=== PATIENT | female | born 1990 | race Caucasian/White ===

== ENCOUNTER 2019-08-07 18:57 | Emergency (ER) | payer OTHER, SELFPAY ==
[2019-08-07 19:08] VITALS: BP 137/83; PULSE 81; RESP 22; TEMP 36.4; O2SAT 100
--- NOTE | 2019-08-07 19:48 | DI.US.S_ITS ---
ULTRASOUND OF RIGHT BREAST: 08/07/2019 CLINICAL: Palpable right breast lumps with redness, pain. Possible abscess. Comparison is made to exam dated: 05/30/2019 ultrasound - [facility]. Color flow and real-time ultrasound of the right breast were performed. Jarrett scale images of the real-time examination were reviewed. At the 1:30 o'clock position, 9 cm from the nipple, one irregular mass measures 3.2 cm x 3.9 cm x 2.2 cm. There is posterior acoustic enhancement. There is peripheral vascularity. No internal vascularity visualized. There is apparent internal debris. There is also overlying skin erythema. At the 1:00 position, 9 cm from the nipple, the second irregular hypoechoic mass measures 1.1 x 0.9 x 0.9 cm. There is associated posterior acoustic enhancement. Immediately adjacent to this at the 1:00 position, 9 cm from the nipple, a third irregular hypoechoic mass is identified measuring 1.8 x 1.7 x 1.3 cm. At the 10:00 position, 7 cm from nipple, there is a fourth irregular hypoechoic mass measuring 7.4 x 3.2 x 3.3 cm. There is also posterior acoustic enhancement and peripheral vascularity. No central vascularity noted. At the 9:00 axis, 4 cm from the nipple, there is a fifth irregular hypoechoic mass measuring 2.3 x 1.7 x 4.8 cm. There is also posterior acoustic enhancement and peripheral vascularity. At the 5:30 o'clock position, 5 cm from the nipple, there is a sixth irregular hypoechoic mass measuring 2.6 x 2.0 x 3.4 cm. There is posterior acoustic enhancement. There is peripheral vascularity. IMPRESSION: PROBABLY BENIGN Multiple scattered irregular heterogeneously hypoechoic masses in the right breast correlating with areas of patient's pain with mild skin erythema involving the upper inner quadrant of the right breast. Findings are suggestive of phlegmon formation versus early developing abscess with other considerations to include galactocele or less likely neoplastic process. No sonographic evidence to suggest drainable fluid collections at this time. Overall, these are probably benign findings. Recommend short interval followup ultrasound in 1 month after course of antibiotic to document stability versus resolution. If findings do not resolve or demonstrate significant decrease in size, recommend aspiration with possible biopsy at that time. Findings were discussed with Dr. Lanker of the Emergency department at 2300 hrs. This exam was interpreted at Station ID: [id number]. Electronically Signed By: Bj Weller M.D. aty/:08/07/2019 23:26:13 letter sent: Followup Recommended Ultrasound BI-RADS: 3 Probably benign
--- NOTE | 2019-08-07 19:48 | ED_ITS ---
HPI - Skin/Abscess/Foreign Bdy General Chief complaint: Skin/Abscess/Foreign Body Stated complaint: MASTITIS OF BREAST Time Seen by Provider: 08/07/19 19:23 Source: patient Mode of arrival: Ambulatory Limitations: no limitations History of Present Illness HPI narrative: 28-year-old female. Approximately 4 weeks here for evaluation of concern for mastitis in her right breast. She is . She states that she feels like that her milk is in. she feels like she is not draining the right breast completely. She is pumping after she breast feeds. She does feel like her child is latching well. She denies any fevers. Has some redness around the right breast. Not currently on any antibiotics. No symptoms in the left breast. Related Data Previous Rx's Medication Instructions Recorded dicloxacillin 500 mg PO QID 10 Days #40 cap 08/07/19 Review of Systems Constitutional Constitutional: Denies fever(s) Cardiovascular Cardiovascular: Denies chest pain and Denies dyspnea Respiratory Respiratory: Denies dyspnea Gastrointestinal Gastrointestinal: Denies vomiting Genitourinary Genitourinary: Denies nipple discharge Integumentary/Breasts Skin/Breast: Reports breast swelling, Reports breast skin changes, Reports breast pain and Denies nipple discharge Hematologic/Lymphatic Hematologic/Lymphatic: Denies easy bleeding and Denies easy bruising Allergic/Immunologic Allergic/Immunologic: Denies urticaria Patient History Medical History (Updated 08/08/19 @ 02:53 by Woody Luo DO) Healthy adult (Acute) Social History marital status: lives independently: Yes Exam Initial Vital Signs Initial Vital Signs: Vital Signs Temperature 97.6 F 08/07/19 19:08 Pulse Rate 81 08/07/19 19:08 Respiratory Rate 22 08/07/19 19:08 Blood Pressure 137/83 08/07/19 19:08 Pulse Oximetry 100 08/07/19 19:08 Const General: cooperative and comfortable Limitations: mental status not altered HENTN Head: normal to inspection and normocephalic Chest Breast Palpation: abnormal palpation of the breast Skin Other: Patient with very slight redness to palpation approximately 2 o'clock position of the right breast. Does have underlying fullness in this area. Also has some slight redness on the lateral aspect of the right breast at approximately 0900 hours position. Again has fullness under this area. Extrem General: normal to inspection and capillary refill normal Psych Appearance: grossly normal and well kempt Course Orders Ordered: ED Orders 08/07/19 19:48 US breast RT limited Stat Discontinued Medications Cephalexin HCl (Keflex) 500 mg PO NOW ONE Stop: 08/07/19 22:03 Last Admin: 08/07/19 22:18 Dose: 500 mg Documented by: REINA Dicloxacillin Sodium (Dicloxacillin) 500 mg PO Q6HR [facility] Vital Signs Vital signs: Vital Signs - 8 hr 08/07/19 19:08 08/07/19 21:50 Temperature 97.6 F Pulse Rate 81 74 Respiratory Rate 22 16 Blood Pressure 137/83 129/80 Pulse Oximetry 100 100 MDM - Skin/Abscess/Foreign Bdy MDM Narrative Medical decision making narrative: Nursing staff was in room as a standby for the breast exam. Does have some redness around this area and tenderness to palpation. No bleeding from the nipple. Patient was afebrile. Not tachycardic. Bedside ultrasound does show some concerns about an abscess in these areas of fullness. A formal ultrasound was ordered. I did discuss the case with the radiologist who states that these could potentially be abscesses versus milk ducts verses cyst versus other etiology. Final report not available secondary to having and reviewed by another radiologist. Patient's clinical exam was concern for mastitis. She is well-appearing. Had a discussion with her regarding the findings of the ultrasound. Stated that these could be any number of etiologies but for her current situation the most concerning would be an abscess. Concern with her is that these findings could be normal cysts given her skin presentation and her vital signs. Patient does states she has been diagnosed with cysts in the past. After this discussion the plan will be is to give the patient oral antibiotics with strict return precautions. Radiologist states that he will put this patient's name in their system to contact her about a follow-up given the findings on the ultrasound especially after she has been given a course of antibiotics. Did inform the patient that she develops fevers or worsening pain or worsening redness she should return to the emergency department is not be more concerning about a abscess. Initially ordered dicloxacillin however this was unavailable to this patient because it was after hours even though it is available during the day so the patient was given a dose of Keflex. Will send home with prescription for dicloxacillin. Patient ex pressed understanding and agreement Discharge Plan Departure Patient Disposition: Home Clinical Impression: Mastitis Discharge Date/Time: 08/07/19 22:28 Instructions: DI for Mastitis Activity Restrictions/Additional Instructions: Take the antibiotics as directed. You can continue to breast feed and/or pump like normal. Contact your primary provider for follow-up. If your symptoms worsen to include fevers or worsening redness or worsening pain please return to the emergency department. Prescriptions: New dicloxacillin 500 mg capsule 500 mg PO QID 10 Days Qty: 40 RF: 0
--- NOTE | 2019-08-07 19:49 | PC.NURSE ---
standby for dr. katz/ right breast.
[2019-08-07 21:50] VITALS: BP 129/80; PULSE 74; RESP 16; O2SAT 100
[2019-08-07] MEDS: cephALEXin 250 MG CAPSULE 500 MG PO (22:18)
== END 2019-08-07 22:28 | disposition home or self-care (01) ==
PROVIDERS: Emergency Provider Emergency Medicine
DX: N61.0 Mastitis without abscess (principal)
CPT/HCPCS: 76642; 99283

== ENCOUNTER 2019-11-05 21:18 | Emergency (ER) | payer OTHER, SELFPAY ==
[2019-11-05 21:38] VITALS: BP 111/76; PULSE 72; RESP 20; TEMP 37.1; O2SAT 99; BMI 22.6
--- NOTE | 2019-11-05 21:47 | DI.RAD.S_ITS ---
PROCEDURE: XR FINGER LT MIN 2V INDICATIONS: dog bite, puncture wounds TECHNIQUE: AP hand, 2 views of the 3rd finger(s) acquired. COMPARISON: None. FINDINGS: Bones: No fractures or dislocations. No suspicious bony lesions. Soft tissues: No suspicious soft tissue calcifications. No radiopaque foreign body. IMPRESSION: No acute osseous abnormality. Dictated by: Dennis Glass M.D. on 11/05/2019 at 22:48 Approved by: Dennis Glass M.D. on 11/05/2019 at 22:48
--- NOTE | 2019-11-05 23:43 | ED_ITS ---
HPI - Animal Bite General Chief Complaint: Animal Bite Stated Complaint: Dog Bite on Left Hand Time Seen by Provider: 11/05/19 23:39 Source: patient Mode of arrival: Ambulatory Limitations: no limitations History of Present Illness HPI narrative: Patient bitten by her pet dog. Dog is up-to-date with vaccinations. Unprovoked. Patient has tooth dharmesh/bite dharmesh on the 3rd left digit only. No other injuries. Injury to the skin at the dorsal surface of the PIP joint as well as on the volar surface of the PIP joint and PIP joint. No numbness tingling weakness. Patient denies does not want t est Related Data Previous Rx's Medication Instructions Recorded amoxicillin-pot clavulanate 1 tab PO BID #14 tab 11/05/19 [Augmentin] Allergies Allergy/AdvReac Type Severity Reaction Status Date / Time No Known Drug Allergies Allergy Verified 11/05/19 21:43 Review of Systems Review of Systems Narrative: GENERAL: Denies chills, fatigue, malaise, fever, sweats. HEENT: Denies sinus pain, ear pain, sore throat, difficulty swallowing, dizziness. RESPIRATORY: Denies dyspnea, cough, wheezing, hemoptysis, sputum. CARDIOVASCULAR: Denies chest pain, palpitations, orthopnea, edema, GASTROINTESTINAL: Denies nausea, vomiting, abdominal pain, diarrhea, constipation, melena. : Denies dysuria, frequency, incontinence, hematuria, urinary retention. MUSCULOSKELETAL: denies weakness, complains of joint pain, or bony pain SKIN: Denies rash, skin lesions, NEUROLOGIC: Denies weakness, headache, numbness, change in speech, confusion, seizures, incoordination. PSYCHIATRIC: No concerning psychosocial issues. ROS Unobtainable: All systems reviewed & are unremarkable except as noted in HPI and below Patient History Medical History Healthy adult (Acute) Social History marital status: lives independently: Yes Smoking Status: Never smoker Smoking Status: Never smoker alcohol intake frequency: 0-2 drinks per day Substance Use Type: does not use Exam Narrative Exam Narrative: GENERAL: patient appears stated age. Well-nourished, well- developed patient, in no distress, not toxic EXTREMITIES: Examination left hand. There are puncture wounds at the dorsal surface of the DIP joint as well as the volar surface of the dIP joint and the PIP joint, full active range of motion at the MCP PIP and D IP joints isolated each. Light touch front end assistant finger tip. No tendon or bony injury seen in bloodless field. No red streaking. NEURO: AOx3. SKIN: No rash or erythema of visible areas PSYCH: Not anxious, is cooperative Initial Vital Signs Initial Vital Signs: Vital Signs Temperature 98.7 F 11/05/19 21:38 Pulse Rate 72 11/05/19 21:38 Respiratory Rate 20 11/05/19 21:38 Blood Pressure 111/76 11/05/19 21:38 Pulse Oximetry 99 11/05/19 21:38 Course Orders Ordered: ED Orders 11/05/19 21:47 XR finger LT min 2V Stat Discontinued Medications Amoxicillin/Clavulanate Potassium (Augmentin 875-125 Mg) 1 tab PO NOW ONE Stop: 11/05/19 23:44 Last Admin: 11/05/19 23:54 Dose: 1 tab Documented by: GERMAIN Bacitracin (Bacitracin) 1 applic TOP NOW ONE Stop: 11/05/19 23:49 Last Admin: 11/05/19 23:54 Dose: 1 applic Documented by: GERMAIN Diphtheria/Tetanus/Acell Pertussis (Adacel) 0.5 ml IM .ONCE ONE Stop: 11/05/19 23:44 Last Admin: 11/05/19 23:55 Dose: Not Given Documented by: GERMAIN Reevaluation(s) Reevaluation #1: Patient understands no suturing indicated this time. Time: 23:46 Vital Signs Vital signs: Vital Signs - 8 hr 11/05/19 21:38 11/06/19 00:17 Temperature 98.7 F 98.5 F Pulse Rate 72 84 Respiratory Rate 20 16 Blood Pressure 111/76 121/84 Pulse Oximetry 99 98 MDM - Animal Bite Differential Diagnosis Differential diagnosis: Likely dog bite Imaging Data Left finger x-ray: Radiologist's Impression: [address] [address] XRay Report Signed Patient: Rupinder Jerez MMR#: [id number] : 1990Acct:[id number] Age/Sex: 29 / FDate of Service: 11/05/19 Loc: ED Accession Number: [id number] Procedure: XR finger LT min 2V Ordering Provider: Jay Muñoz MD PROCEDURE: XR FINGER LT MIN 2V INDICATIONS: dog bite, puncture wounds TECHNIQUE: AP hand, 2 views of the 3rd finger(s) acquired. COMPARISON: None. FINDINGS: Bones: No fractures or dislocations. No suspicious bony lesions. Soft tissues: No suspicious soft tissue calcifications. No radiopaque foreign body. IMPRESSION: No acute osseous abnormality. Dictated by: Dennis Glass M.D. on 11/05/2019 at 22:48 Approved by: Dennis Glass M.D. on 11/05/2019 at 22:48 [facility] Narrative Medical decision making narrative: Patient agrees and understands no suturing this time. No labs indicated. Appropriate for discharge home. Not toxic. Discharge Plan Departure Patient Disposition: Home Clinical Impression: Dog bite Qualifiers: Encounter type: initial encounter Qualified Code(s): W54.0XXA - Bitten by dog, initial encounter Discharge Date/Time: 11/06/19 00:18 Instructions: DI for Dog Bite Activity Restrictions/Additional Instructions: Clean finger twice a day with warm soap and water and then apply topical antibiotic. Call provided phone number for attaining family physician to see within a week. Return if worse or if any concerns or questions. Prescriptions: New amoxicillin-pot clavulanate [Augmentin] 875-125 mg tablet 1 tab PO BID Qty: 14 RF: 0 Referrals: [facility] [Outside]
[2019-11-05] MEDS: BACITRACIN OINT 0.9 GM PCKT 1 APPLIC TOP (23:54)
[2019-11-05] MEDS: AMOXICILLIN/CLAV 875/125 MG 1 TAB PO (23:54)
[2019-11-05] MEDS: TET,DIPH,PERTUSS(ACELL),VAC/PF 0.5 ML SYRINGE IM (23:55)
[2019-11-06 00:17] VITALS: BP 121/84; PULSE 84; RESP 16; TEMP 36.9; O2SAT 98
== END 2019-11-06 00:18 | disposition home or self-care (01) ==
PROVIDERS: Emergency Provider Emergency Medicine
DX: S61.253A Open bite of left middle finger without damage to nail, initial encounter (principal); W54.0XXA Bitten by dog, initial encounter
CPT/HCPCS: 73140; 99283; 99284; 90715

== ENCOUNTER → 2019-12-24 12:38 | Outpatient (CLI) | payer OTHER, SELFPAY ==
--- NOTE | 2019-12-24 12:39 | DI.MRI.S_ITS ---
PROCEDURE: MR KNEE RT WO CON INDICATIONS: Knee pain TECHNIQUE: Noncontrast sagittal PD fast spin echo and T2 fast spin echo with fat saturation, sagittal 3-D FLASH with fat saturation; coronal T1 spin echo and PD fast spin echo with fat saturation, and axial PD fast spin echo with fat saturation through the knee. COMPARISON: None. FINDINGS: Image quality: Excellent. Menisci: Medial meniscus intact. Lateral meniscus intact. Cruciate ligaments: Anterior cruciate ligament appears intact. Posterior cruciate ligament appears intact. Medial structures: The medial collateral ligament appears intact. Semimembranosus tendon appears intact. Visualized portions of the pes anserinus tendons appear normal. No abnormal bursal fluid. Lateral structures: The lateral collateral ligament intact. Biceps femoris tendon appears intact. Popliteus tendon grossly unremarkable. Iliotibial band appears intact. Anterior structures: There is patella juice. Quadriceps tendon intact. Medial and lateral patellofemoral ligaments intact. Patellar tendon appears intact. Edema and fluid is present in the superolateral aspect of Hoffa's fat pad Bones and cartilage: No focal marrow contusion or discrete low signal fracture line. Within the medial compartment, no focal cartilage defect. Within the lateral compartment, no focal cartilage defect. Within the patellofemoral compartment, diffuse partial-thickness loss of the patellar cartilage, and surface fraying. No definite femoral trochlear cartilage defect is seen. There is Joint space: No joint effusion. Martin's cyst measuring 6 cm in the cephalocaudal dimension. No specific evidence of intra-articular loose body. IMPRESSION: Patellofemoral chondromalacia. Focal fluid and soft tissue edema involving the superolateral aspect of Hoffa's fat pad. This finding can be seen the setting of patellofemoral tracking abnormalities. Patella juice. Martin's cyst Dictated by: Ottoniel Morocho M.D. on 12/24/2019 at 15:04 Approved by: Ottoniel Morocho M.D. on 12/24/2019 at 15:11
--- NOTE | 2019-12-24 12:39 | DI.MRI.S_ITS ---
PROCEDURE: MR LUMBAR SPINE WO CON INDICATIONS: Low back pain TECHNIQUE: Noncontrast sagittal T1 spin echo and T2 fast echo, sagittal STIR, axial T1 and T2 fast spin echo through the lumbar spine. In cases with scoliosis, additional coronal T2 fast spin echo may be performed. COMPARISON: None. FINDINGS: Image quality: Excellent. Alignment and Curvature: There is normal bony alignment. Bone Marrow: Marrow is of normal overall signal. No acute vertebral body compression fractures. Spinal Cord: Conus medullaris terminates at the L1-2 disc level. Visualized cord demonstrates normal signal and size. Paraspinous Soft Tissues: No paravertebral masses. L1-L2: Normal appearance. L2-L3: Normal appearance. L3-L4: Loss of disc signal. Mild, diffuse disc bulge. No central stenosis. No neural foraminal narrowing. No neural compression. L4-L5: Disc has a normal appearance. Mild bilateral facet hypertrophy. No central stenosis. No neural foraminal narrowing. No neural compression. L5-S1: Disc has a normal appearance. Mild right and moderate left facet hypertrophy. No central stenosis. No neural foraminal narrowing. No neural compression. Small bilateral L2-L3 Tarlov cysts. IMPRESSION: 1. Mild L3-L4 degenerative disc disease. 2. Mild bilateral L4-L5 facet arthropathy. Mild right and moderate left L5-S1 facet arthropathy. 3. No central stenosis. 4. No neural foraminal narrowing. 5. No neural compression. Dictated by: Sheeba Hernandez MD, PhD on 12/24/2019 at 17:03 Approved by: Sheeba Hernandez MD, PhD on 12/24/2019 at 17:10
== END ==
PROVIDERS: PCP Student in an Organized Health Care Education/Training Program; Referring Provider Student in an Organized Health Care Education/Training Program; Visit Provider Student in an Organized Health Care Education/Training Program
DX: M24.9 Joint derangement, unspecified (principal); M25.561 Pain in right knee; M22.41 Chondromalacia patellae, right knee; M71.21 Synovial cyst of popliteal space [Baker], right knee; M22.8X1 Other disorders of patella, right knee; M79.2 Neuralgia and neuritis, unspecified; M54.5 Low back pain; M51.36 Other intervertebral disc degeneration, lumbar region; M47.816 Spondylosis without myelopathy or radiculopathy, lumbar region; M47.817 Spondylosis without myelopathy or radiculopathy, lumbosacral region; M62.830 Muscle spasm of back
CPT/HCPCS: 72148; 73721

== ENCOUNTER → 2021-03-09 09:58 | Outpatient (CLI) | payer OTHER, SELFPAY ==
[2021-03-09 11:24] LABS: Add Manual Diff / Slide Review NO; Basophils Absolute Auto 0 /uL (0-100); Basophils Percent Auto 0.6 % (0-2); Eosinophils Absolute Auto 100 /uL (0-450); Eosinophils Percent Auto 1.3 % (2-4); Hematocrit 35.8 % (36-46); Hemoglobin 12.2 g/dL (12.0-16.0); Lymphocytes Absolute Auto 1500 /uL (1100-4500); Lymphocytes Percent Auto 34.3 % (25-40); Mean Corpuscular HGB Conc 34.2 % (30-36); Mean Corpuscular Hemoglobin 30.7 PG (26-34); Mean Corpuscular Volume 89.9 fL (80-100); Monocytes Absolute Auto 200 /uL (0-900); Monocytes Percent Auto 5.5 % (3-14); Neutrophils Absolute Auto 2500 /uL (1500-7000); Neutrophils Percent Auto 58.3 % (50-75); Platelet Count 199 X10^3/uL (150-400); Red Blood Cell Count 3.98 X10^6/uL (4.0-5.2); Red Cell Distribution Width 12.1 % (11.6-14.8); White Blood Cell Count 4.2 X10^3/uL (4.5-11.0)
[2021-03-09 11:52] LABS: Appearance Urine UA SL CLOUDY; Bilirubin Urine UA NEGATIVE (NEGATIVE); Color Urine UA YELLOW; Glucose Urine UA NEGATIVE (Negative); Ketones Urine UA NEGATIVE (NEGATIVE); Leukocyte Esterase Urine UA 2+ (NEGATIVE); Nitrite Urine UA NEGATIVE (Negative); Occult Blood Urine UA 1+ (Negative); Protein Urine UA 1+ (Negative); Urobilinogen Urine UA 0.2 E.U./dL (0.2)
[2021-03-09 12:05] LABS: Bacteria Urine Many (>30); RBC Urine 1-5/HPF (0-5/HPF); Squamous Epithelial Cell Urine >30 /HPF (0-5/HPF); WBC Urine 10-30/HPF (0-5/HPF)
[2021-03-10 11:17] LABS: RPR Screen Non Reactive (Non Reactive); Varicella IgG Antibody 880 index (Immune >165)
[2021-03-12 16:24] LABS: Hepatitis B Surface Antigen NEGATIVE s/c (NEGATIVE); Rubella Antibody IgG 78.5 IU/mL (>15)
[2021-03-12 16:39] LABS: HIV 1 & 2 Ab/Ag 4th Gen Combo NEGATIVE (NEGATIVE); Hep C Virus Ab w/Reflex Quant NEGATIVE s/c (NEGATIVE)
== END ==
PROVIDERS: PCP Student in an Organized Health Care Education/Training Program; Referring Provider Obstetrics & Gynecology; Visit Provider Obstetrics & Gynecology
DX: Z34.80 Encounter for supervision of other normal pregnancy, unspecified trimester (principal)
CPT/HCPCS: 36415; 80055; 81003; 81015; 86787; 86803; 86850; 86900; 86901; 87086; 87389

== ENCOUNTER → 2021-03-31 10:13 | Outpatient (CLI) | payer OTHER, SELFPAY ==
[2021-03-31 10:23] LABS: Specimen Label Y
== END ==
PROVIDERS: PCP Student in an Organized Health Care Education/Training Program; Referring Provider Obstetrics & Gynecology; Visit Provider Obstetrics & Gynecology
DX: Z34.91 Encounter for supervision of normal pregnancy, unspecified, first trimester (principal); Z3A.13 13 weeks gestation of pregnancy
CPT/HCPCS: 36415

== ENCOUNTER → 2021-05-04 13:44 | Outpatient (CLI) | payer OTHER, SELFPAY ==
[2021-05-04 13:56] LABS: Add Manual Diff / Slide Review NO; Basophils Absolute Auto 0 /uL (0-100); Basophils Percent Auto 0.2 % (0-2); Eosinophils Absolute Auto 0 /uL (0-450); Eosinophils Percent Auto 0.8 % (2-4); Hematocrit 31.2 % (36-46); Hemoglobin 10.6 g/dL (12.0-16.0); Lymphocytes Absolute Auto 1400 /uL (1100-4500); Lymphocytes Percent Auto 23.9 % (25-40); Mean Corpuscular HGB Conc 34.1 % (30-36); Mean Corpuscular Hemoglobin 31.2 PG (26-34); Mean Corpuscular Volume 91.6 fL (80-100); Monocytes Absolute Auto 300 /uL (0-900); Monocytes Percent Auto 4.8 % (3-14); Neutrophils Absolute Auto 4000 /uL (1500-7000); Neutrophils Percent Auto 70.3 % (50-75); Platelet Count 192 X10^3/uL (150-400); Red Blood Cell Count 3.41 X10^6/uL (4.0-5.2); Red Cell Distribution Width 13.8 % (11.6-14.8); White Blood Cell Count 5.7 X10^3/uL (4.5-11.0)
== END ==
PROVIDERS: PCP Student in an Organized Health Care Education/Training Program; Referring Provider Obstetrics & Gynecology; Visit Provider Obstetrics & Gynecology
DX: D64.9 Anemia, unspecified (principal)
CPT/HCPCS: 36415; 85025

== ENCOUNTER → 2021-05-06 15:48 | Outpatient (CLI) | payer OTHER, SELFPAY ==
[2021-05-06 20:14] LABS: Urine N gonorrhoeae NOT DETECTED
[2021-05-06 20:16] LABS: Urine Chlamydia NOT DETECTED
== END ==
PROVIDERS: PCP Student in an Organized Health Care Education/Training Program; Visit Provider Obstetrics & Gynecology
DX: Z34.82 Encounter for supervision of other normal pregnancy, second trimester (principal); Z3A.17 17 weeks gestation of pregnancy
CPT/HCPCS: 87491; 87591

== ENCOUNTER → 2021-05-06 16:39 | Outpatient (CLI) | payer OTHER, SELFPAY ==
[2021-05-13 21:07] LABS: AFP Value 88.7 ng/mL (.); Gest Age on Col Date 17.6 weeks (.); Gestational Age EDD (.); Insulin Dep Diabetes No (.); OSBR Risk 1IN 737 (.); Results Report (.); Test Results *Screen Negative* (.)
== END ==
PROVIDERS: PCP Student in an Organized Health Care Education/Training Program; Referring Provider Obstetrics & Gynecology; Visit Provider Obstetrics & Gynecology
DX: Z34.82 Encounter for supervision of other normal pregnancy, second trimester (principal); Z3A.17 17 weeks gestation of pregnancy
CPT/HCPCS: 36415; 82105; 87491; 87591

== ENCOUNTER → 2021-06-03 12:03 | Outpatient (CLI) | payer OTHER, SELFPAY ==
--- NOTE | 2021-06-03 12:05 | DI.US.S_ITS ---
PROCEDURE: US OB >= 14 WEEKS FETUS INDICATIONS: ANATOMY OUTSIDE/PRIOR DATING DATA: Last menstrual period (LMP): 01/03/2021. LMP-based estimated date of delivery (MINOR): 10/10/2021. First dating scan (date and location): 03/11/2021. Estimated date of delivery (MINOR) from first dating scan: 10/12/2021. TECHNIQUE: Real-time scanning was performed of the fetus, with image documentation and biometric measurements. Endovaginal scanning: No COMPARISON: None. FINDINGS: General: A single living intrauterine gestation is present. Presentation: Transverse with head to maternal left. Placenta: Placental position is anterior , without previa. Amniotic fluid index: 20 cm, normal range is 5-24 cm. heart rate: 152 beats per minute. Maternal cervical canal: 3.5 cm long. Normal lower limit is 2.5 cm. biometrics: Biparietal diameter: 49 mm; 20 weeks 6 days Head circumference: 186 mm; 21 weeks 0 days Abdominal circumference: 170 mm; 22 weeks 0 days Femur length: 39 mm; 22 weeks 3 days Estimated gestational age by initial OB ultrasound: 21 weeks 1 day Composite gestational age from present scan: 21 weeks 4 days Estimated weight and percentile: 468 g, which is at the 87th percentile for gestational age Anatomic survey: Neuro: Ventricles are non-dilated at less than 10 mm. Cisterna magna is normal at 3-11 mm. Cerebellum is normal in size and morphology. Nuchal skin fold: Normal at less than 6 mm between 14-21 weeks gestational age. Face: Nose and lips, facial profile are normal. Spine: No evidence for spina bifida. Heart: 4-chambered heart is present, with normal ventricular outflow tracts. Diaphragm: Diaphragm is intact. Stomach: Left-sided stomach is present. Kidneys: No hydronephrosis. Normal is less than 5 mm in 2nd trimester, less than 7 mm in 3rd trimester. Cord: 3-vessel cord has orthotopic insertion. Bladder: Normal in size. Extremities: All 4 extremities identified. IMPRESSION: 1. Single living intrauterine gestation. 2. Normal survey of anatomy. We strive to produce accurate, complete, and clear reports of imaging services. To assist us in improving patient care, this report was composed using standard report templates and voice recognition software. Therefore, it may contain abnormal punctuation, insertions and/or omissions. Occasional wrong-word or sound-alike substitutions may occur. Though we review the report and make efforts to correct it, we do recommend that the report be read carefully in proper context to recognize any text inaccuracies. Dictated by: Timothy Whaley M.D. on 06/03/2021 at 15:22 Approved by: Timothy Whaley M.D. on 06/03/2021 at 16:57
[2021-06-03 15:55] LABS: Add Manual Diff / Slide Review NO; Basophils Absolute Auto 0 /uL (0-100); Basophils Percent Auto 0.2 % (0-2); Eosinophils Absolute Auto 0 /uL (0-450); Eosinophils Percent Auto 0.6 % (2-4); Hemoglobin 11.2 g/dL (12.0-16.0); Lymphocytes Absolute Auto 1000 /uL (1100-4500); Lymphocytes Percent Auto 16.3 % (25-40); Mean Corpuscular HGB Conc 34.9 % (30-36); Mean Corpuscular Hemoglobin 32.8 PG (26-34); Monocytes Absolute Auto 200 /uL (0-900); Monocytes Percent Auto 3.6 % (3-14); Neutrophils Absolute Auto 4700 /uL (1500-7000); Neutrophils Percent Auto 79.3 % (50-75); Platelet Count 202 X10^3/uL (150-400); Red Blood Cell Count 3.41 X10^6/uL (4.0-5.2); Red Cell Distribution Width 14.2 % (11.6-14.8)
[2021-06-03 16:44] LABS: HEMOLYSIS < 15 (0-50); Iron 105 ug/dL (37-170)
[2021-06-03 16:53] LABS: Vitamin B12 261 pg/mL (239-931)
[2021-06-03 16:54] LABS: Percent Iron Saturation 36 % (15-50); Total Iron Binding Capacity 291 ug/dL (265-497); Transferrin 251 mg/dL (206-381)
== END ==
PROVIDERS: PCP Student in an Organized Health Care Education/Training Program; Referring Provider Obstetrics & Gynecology; Visit Provider Obstetrics & Gynecology
DX: Z36.89 Encounter for other specified antenatal screening (principal); O99.012 Anemia complicating pregnancy, second trimester; D50.9 Iron deficiency anemia, unspecified; Z3A.21 21 weeks gestation of pregnancy
CPT/HCPCS: 36415; 76811; 82607; 83540; 83550; 85025